=== PATIENT | female | born 1970 | race Caucasian/White ===

== ENCOUNTER 2021-11-04 15:34 | Emergency (ER) | payer OTHER, SELFPAY ==
[2021-11-04] VITALS (21 sets, daily range): BP systolic 161–218; BP diastolic 104–135; PULSE 76–106; RESP 14–16; TEMP 36.4; O2SAT 97–100
--- NOTE | ~2021-11-04 | XR_ITS ---
EXAMINATION: XR chest 1V portable DATE: 11/04/2021 18:04 INDICATION: Chest pressure. TECHNIQUE: A single frontal view of the chest was obtained. COMPARISON: Chest 2 views 06/11/2015 FINDINGS: There is mild scarring at the lung apices. No pleural effusion or pneumothorax. The heart s ize is normal. IMPRESSION: 1. Mild scarring at the lung apices. Reviewed, dictated and finalized at location A.
--- NOTE | 2021-11-04 16:20 | ECG_ITS ---
Measurements Intervals [place] Rate: 92 P: 63 OR: 146 QRS: 38 QRSD: 84 T: 32 QT: 343 QTc: 425 Interpretive Statements SINUS RHYTHM POSSIBLE LEFT ATRIAL ENLARGEMENT DELAYED PRECORDIAL R/S TRANSITION BASELINE ARTIFACT- V4 BORDERLINE ECG Electronically Signed On 11-04-2021 20:20:45 CDT by Gopal Christianson D.O.
[2021-11-04 16:49] LABS: Basophils Percent Auto 0.2 % (0.2-1.2); Hematocrit 39.3 % (37.0-47.0); Hemoglobin 13.7 g/dL (12.0-15.0); Immature Granulocyte Absolute 0.19 K/mm3 (0.00-0.031); Immature Granulocyte Percent A 1.1 % (0-0.5); Lymphocytes Percent Auto 4.1 % (18.3-44.2); Mean Corpuscular HGB Conc 34.9 g/dl (32-36); Mean Corpuscular Hemoglobin 30.9 pg (26-34); Mean Corpuscular Volume 88.5 fl (80-100); Mean Platelet Volume 11.2 fl (7.4-10.4); Monocytes Absolute Auto 0.4 K/mm3 (0.1-0.6); Monocytes Percent Auto 2.3 % (2.6-8.5); Neutrophils Absolute Auto 15.8 K/mm3 (1.3-6.7); Neutrophils Percent Auto 92.3 % (45.5-73.1); Platelet Count Result 337 k/mm3 (150-375); Red Blood Count 4.44 M/mm3 (4.2-5.4); Red Cell Distribution Width 13.7 % (11.5-14.5); White Blood Count 17.1 K/mm3 (4.5-10.0)
[2021-11-04 16:58] LABS: Alanine Aminotransferase 18 U/L (6-35); Albumin Level 4.3 g/dL (3.5-5.1); Alkaline Phosphatase 92 U/L (38-126); Anion Gap 9 mmol/L (8-16); Aspartate Amino Transferase 20 U/L (14-36); Bilirubin,Total 0.3 mg/dL (0.2-1.3); Blood Urea Nitrogen 23 mg/dL (7-17); Calcium 9.1 mg/dL (8.4-10.2); Carbon Dioxide 21 mmol/L (22-30); Chloride 106 mmol/L (98-107); Estimated CRCL calculation 54 ml/min; Estimated Glomerular Filt Rate > 60; Glucose 126 mg/dL (65-110); Lipase 42 U/L (23-300); Potassium 4.4 mmol/L (3.4-5.0); Prothrombin Time 12.7 Seconds (11.1-14.7); Sodium 136 mmol/L (137-145)
[2021-11-04 16:59] LABS: Partial Thromboplastin Time 25.6 SECONDS (22.3-36.8)
[2021-11-04 17:10] LABS: Troponin I < 0.012 ng/mL (0.000-0.034)
--- NOTE | 2021-11-04 17:59 | ED.GENADULT ---
HPI - General Adult General Chief complaint: Recheck/Abnormal Lab/Rx Stated complaint: high bp, headache Time Seen by Provider: 11/04/21 17:58 Source: patient Mode of arrival: ambulatory Limitations: no limitations History of Present Illness HPI narrative: 51 years old white female referred to our emergency room by her family physician, because of elevated blood pressure. Patient had COVID symptoms few days ago, went to her family physician who ran the COVID test on her and the results were NEG ,2 days later. Patient went to family physician today to get a note to go back to work. Blood pressure found to be elevated. Subsequently patient told her family physician that she had some chest discomfort. History of anxiety, hypertension, stopped her blood pressure medication 2018, also stopped her anxiety medication 2018. Currently blood pressure is 165/131 and patient is asymptomatic. Patient smokes, does not drink or uses drugs. Related Data Home Medications Medication Instructions Recorded Confirmed doxycycline hyclate 100 mg capsule mg 11/04/21 prednisone 20 mg tablet mg 11/04/21 11/04/21 Allergies Allergy/AdvReac Type Severity Reaction Status Date / Time Penicillins Allergy Unknown Verified 11/04/21 16:38 Review of Systems Review of Systems: All systems reviewed & are unremarkable except as noted in HPI and below Exam Narrative: General appearance: Well-developed, well-nourished Skin: Normal color Head: Normocephalic, nontraumatic Eyes: Clear conjunctiva ENT: Oropharynx normal, ears normal, nose normal Neck: Supple, nontender Chest and respiratory: Airway patent, no respiratory distress, no accessory muscle use Heart: Regular rate/rhythm Abdomen: Soft, nontender, no organomegaly, quiet bowel sounds Vascular: Normal peripheral pulses, normal capillary refill. Musculoskeletal: Normal range of motion, nontender back Neurologic: Alert and oriented ?3, JAVA SDET is normal as tested, no gross motor deficit Course Vital Signs Vital signs: Vital Signs Temperature 36.4 C 11/04/21 16:15 Pulse Rate 106 H 11/04/21 16:15 Respiratory Rate 16 11/04/21 16:15 Blood Pressure 218/121 H 11/04/21 16:15 Pulse Oximetry 100 11/04/21 16:15 Oxygen Delivery Room Air 11/04/21 16:15 Temperature 36.4 C 11/04/21 16:15 Pulse Rate 106 H 11/04/21 16:15 Respiratory Rate 16 11/04/21 16:15 Blood Pressure 218/121 H 11/04/21 16:15 Pulse Oximetry 100 11/04/21 16:15 Oxygen Delivery Room Air 11/04/21 16:15 Medical Decision Making Vital Signs Vital Signs: Vital Signs Temperature 36.4 C 11/04/21 16:15 Pulse Rate 106 H 11/04/21 16:15 Respiratory Rate 16 11/04/21 16:15 Blood Pressure 218/121 H 11/04/21 16:15 Pulse Oximetry 100 11/04/21 16:15 Oxygen Delivery Room Air 11/04/21 16:15 Temperature 36.4 C 11/04/21 16:15 Pulse Rate 106 H 11/04/21 16:15 Respiratory Rate 16 11/04/21 16:15 Blood Pressure 218/121 H 11/04/21 16:15 Pulse Oximetry 100 11/04/21 16:15 Oxygen Delivery Room Air 11/04/21 16:15 Lab Data Result diagrams: 11/04/21 16:40 11/04/21 16:40 Labs: Lab Results 11/04/21 11/04/21 11/04/21 Range/Units 16:40 16:40 16:40 WBC 17.1 H (4.5-10.0) K/mm3 RBC 4.44 (4.2-5.4) M/mm3 Hgb 13.7 (12.0-15.0) g/dL Hct 39.3 (37.0-47.0) % MCV 88.5 (80-100) fl MCH 30.9 (26-34) pg MCHC 34.9 (32-36) g/dl RDW 13.7 (11.5-14.5) % Plt Count 337 (150-375) k/mm3 MPV 11.2 H (7.4-10.4) fl Immature Gran % (Auto) 1.1 H (0-0.5) % Neut % (Auto) 92.3 H (45.5-73.1) % Lymph % (Auto) 4.1 L (18.3-44.2) % [place] %
[2021-11-04] MEDS: ASPIRIN 81 MG CHEWABLE TABLET 324 MG PO (18:09)
[2021-11-04] MEDS: NITROGLYCERIN OINTMENT 1 INCH DOSE 2 INCH TRANSDERM (18:09)
[2021-11-04] MEDS: LORazepam (*CRX) 0.5 MG TABLET 1 MG PO (18:25)
[2021-11-04] MEDS: METOPROLOL TARTRATE 50 MG TAB 25 MG PO (18:26)
[2021-11-04 19:21] LABS: Troponin I < 0.012 ng/mL (0.000-0.034)
[2021-11-04] MEDS: LABETALOL HCL INJ 100 MG/20 ML VIAL 20 MG IV PUSH ×2 (19:45→20:11)
== END 2021-11-04 21:40 | disposition home or self-care (01) ==
PROVIDERS: Emergency Provider Emergency Medicine
DX: I10 Essential (primary) hypertension (principal); R07.89 Other chest pain; T46.5X6A Underdosing of other antihypertensive drugs, initial encounter; Z91.128 Patient's intentional underdosing of medication regimen for other reason; F41.9 Anxiety disorder, unspecified; F17.200 Nicotine dependence, unspecified, uncomplicated; R94.31 Abnormal electrocardiogram [ECG] [EKG]
CPT/HCPCS: 36415; 71045; 80053; 83690; 84484; 85025; 85610; 85730; 93005; 96374; 99284; A9270